=== PATIENT | male | born 1965 | race Caucasian/White ===

== ENCOUNTER → 2023-03-15 11:29 | Outpatient (CLI) | payer OTHER, SELFPAY ==
--- NOTE | 2023-03-15 | DI.MRI.S_ITS ---
PROCEDURE: MR ELBOW RT WO CON INDICATIONS: Lateral epicondylitis, right elbow TECHNIQUE: Noncontrast coronal proton density fast spin echo and T2 fast spin echo with fat saturation, axial and sagittal T1 spin echo and T2 fast spin echo with fat saturation through the elbow. COMPARISON: None. FINDINGS: Image quality: Excellent. Lateral structures: The lateral ulnar collateral ligament and radial collateral ligament both appear intact. There is moderate grade partial intrasubstance tearing of the common extensor tendon at the origin superimposed on moderate tendinosis. Medial structures: The ulnar collateral ligament appears intact. The overlying common flexor tendon demonstrates mild tendinosis. The ulnar nerve appears normal in size and signal within the cubital tunnel. Anterior structures: The biceps and brachialis tendons both appear intact as they insert onto the proximal radius and ulna, respectively. No bicipitoradial bursal fluid. The median and radial neurovascular bundles appear normal; no focal muscle atrophy to suggest nerve impingement. Posterior structures: The conjoint triceps tendon from the long and lateral heads appears intact. The medial head of the triceps tendon also appears normal, with direct muscle insertion onto the olecranon. No olecranon bursal fluid. Bone and cartilage: No bone marrow contusions or fractures. No osteochondral injuries. IMPRESSION: 1. Moderate grade partial intrasubstance tearing of the common extensor tendon at the origin superimposed on moderate tendinosis. 2. Mild proximal common flexor tendinosis. Approved by: Dimitri Cueto M.D. on 03/15/2023 at 18:08
== END ==
PROVIDERS: Referring Provider Orthopaedic Surgery; Visit Provider Orthopaedic Surgery
DX: M77.11 Lateral epicondylitis, right elbow (principal); S56.511A Strain of other extensor muscle, fascia and tendon at forearm level, right arm, initial encounter
CPT/HCPCS: 73221